=== PATIENT | female | born 1975 | race Caucasian/White ===

== ENCOUNTER 2023-05-15 15:25 | Outpatient (AMB) | payer OTHER, SELFPAY ==
--- NOTE | 2023-05-15 15:34 | A.OFFPC_ITS ---
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 Intake Note: Patient is a new patient here to establish care Move Coordinator Required: No Allergies No Known Allergies Allergy (Verified 05/15/23 15:47) Medication List - Last Reconciled 05/15/23 by SEJAL Hayes No Known Home Meds Tobacco use date assessed: 05/15/23 Dental Screening Dental Screen Date: 05/15/23 Did you have a dental visit in the last 12 months?: No Did you have a dental problem in the last 6 months where you did not have access to dental care?: No 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 Previous PCP Dr. Best at [facility], last visit over 1 year ago. Medical history significant for fibromyalgia-patient reports multiple joint pains-would like to be seen by Rheumatology, reports being diagnosed with IBS in the past-reports diarrhea since her childhood almost daily watery/soft-reports diarrhea after she eats anything-reports normal stool once several months ago, anemia, GERD-reports taking her 's omeprazole intermittently, insomnia, shortness of breath on exertion with intermittent palpitations at the same time- reports having stress test in the past-reports was told has pressure on her heart , smoker-reports smoking less than 0.5 ppd of cigarettes per day since age 15, alcohol abuse-reports drinking at night 1-3 drinks to help her fall asleep. Patient denies chest pain, denies blood in stool, no nausea or vomiting. [facility] Medical History (Updated 05/15/23 @ 16:03 by SEJAL Hayes) Foot fracture, right Surgical History H/O tubal ligation Social History Housing: Apartment Patient Tobacco Use Status: Current everyday Tobacco user Cigarette Packs Per Day: 0.5 service: No Current occupational status: unemployed Cognitive needs: No Hearing needs: No Vision needs: No Questionnaire PHQ-9 Over the last 2 weeks, how often have you been bothered by any of the following problems? 1. Little interest or pleasure in doing things: not at all 2. Feeling down, depressed, or hopeless: not at all 3. Trouble falling or staying asleep, or sleeping too much: not at all 4. Feeling tired or having little energy: not at all 5. Poor appetite or overeating: not at all 6. Feeling bad about yourself - or that you are a failure or have let yourself or your family down: not at all 7. Trouble concentrating on things, such as reading the newspaper or watching television: not at all 8. Moving or speaking so slowly that other people could have noticed. Or the opposite - being so fidgety or restless that you have been moving around a lot more than usual: not at all 9. Thoughts that you would be better off or of hurting yourself in some way: not at all Total score: 0 Depression Screening Interpretation: Negative Depression Screening Done: Yes 79938 - PHQ-9 Billing: Yes Source: Developed by Drs. Manpreet Nesbitt, Anisha Garcia, Brett Chino and colleagues, with an educational amaury from [employer]. Thrive Questionnaire Date Thrive assessed: 05/15/23 I am a: Patient What is your living situation today?: I have a steady place to live Within the past 12 months, did the food you bought not last and you didn't have the money to get more?: Never true Within the past 12 months, did you worry whether your food would run out before you got money to buy more?: Never true Do you have trouble paying for medicines?: No Do you have trouble getting transportation to medical appointments?: No Do you have trouble paying your heating and electricity bill?: No Do you have trouble taking care of your child, family member or friend?: No Do you have trouble with day-to-day activities such as bathing, preparing meals, shopping, managing finances, etc.?: No Are you currently unemployed and looking for a job?: No Are you interested in more education?: No Currently or been in a relationship where the following occur: no concerns reported AUDIT C Alcohol Use Questionnaire (AUDIT-C) 1. How often do you have a drink containing alcohol?: 4 or more times a week 2. How many drinks containing alcohol do you have on a typical day when you are drinking?: 3 or 4 3. How often do you have six or more drinks on one occasion?: Never Total Score: 5 Score Reviewed/Action Taken: Yes KEILA-7 AMB Questionnaire KEILA-7 Date KEILA - 7 assessed: 05/15/23 Feeling nervous, anxious, or on edge: 0 = Not at all Not being able to stop or control worryin = Not at all Worrying too much about different things: 0 = Not at all Trouble relaxin = Not at all Being so restless that it is hard to sit still: 0 = Not at all Becoming easily annoyed or irritable: 0 = Not at all Feeling afraid as if something awful might happen: 0 = Not at all Total KEILA-7 score (0-4 normal; 5-9 mild; 10-14 moderate; 15-21 severe): 0 Source: Developed by Drs. Manpreet Nesbitt, Anisha Garcia, Brett Chino and colleagues, with an educational amaury from [employer]. KEILA-7 Assessment Billing KEILA-7 Assessment Tool: KEILA-7 Assessment 80943 Review of Systems Const Denies body aches, Denies chills, Denies fever(s) and Denies headache(s) Eyes Denies change in vision ENT Denies dizziness, Denies otalgia, Denies headache(s), Denies nasal discharge, Denies sinus pain and Denies sore throat Card Denies chest pain, Denies edema, Denies lightheadedness, Reports palpitations (Intermittent), Denies dyspnea and Reports dyspnea on exertion Resp Denies cough, Denies dyspnea, Reports dyspnea on exertion and Denies wheezing GI Reports abdominal pain (Intermittent generalized, resolves after bowel), Denies change in bowel habits, Denies constipation, Reports heartburn, Reports diarrhea, Denies nausea and Denies vomiting Denies dysuria Musc Denies myalgias Skin/Breast Denies rash Neuro Denies dizziness and Denies headache(s) Endo Reports palpitations (Intermittent) Aller/Immun Denies wheezing Physical exam (Primary Care) Vital Signs: Last Vital Signs Pulse 69 05/15/23 15:35 BP 142/90 H 05/15/23 15:35 Pulse Ox 99 05/15/23 15:35 Oxygen Delivery Method Room Air 05/15/23 15:35 BMI result Body Mass Index 29.0 Tobacco/Smoking Status: Tobacco use Status Tobacco use date assessed 05/15/23 05/15/23 15:36 Patient Tobacco Use Status Current everyday Tobacco 05/15/23 15:44 PHQ-9: PHQ-9 Score PHQ-9: Total score 0 05/15/23 15:44 Depression Screening Interpretation: Negative Thrive Assessment: Date of Thrive Assessment Date Thrive assessed 05/15/23 05/15/23 15:36 Currently or been in a relationship where the following occur: no concerns reported Const General: cooperative and no acute distress Orientation/consciousness: patient oriented x3 HENMT Head: Yes normocephalic and Yes atraumatic Ears: TM's normal bilaterally Face and sinus: Yes sinuses nontender Mouth: oropharynx normal and moist mucous membranes Throat: Yes posterior oropharynx normal Eyes General: appearance normal, both eyes and all related structures Pupils: Equal, round and reactive pupils present EOM: EOMs intact bilaterally Neck Neck: Yes normal visual inspection, Yes full ROM and Yes no lymphadenopathy Thyroid: Thyroid normal Resp Effort & Inspection: normal respiratory effort and able to speak in complete sentences Auscultation: clear to auscultation bilaterally, no crackles, no rales, no rhonchi and no wheezes Cardio Rate: regular rate Rhythm: regular rhythm Heart sounds: S1 normal heart sound present, S2 normal heart sound present and no murmurs GI Palpation (GI): Soft to palpation, not firm, nontender, no guarding, not rigid and no hepatosplenomegaly Auscultation: normal bowel sounds General: No CVA tenderness Back/Spine/Pelvis Back: No CVA tenderness Skin General skin exam: no rashes or lesions noted Neuro General: patient oriented x3 Cranial nerves: Yes Equal, round and reactive pupils present Gait exam (Neuro): Normal gait present Extrem General: Yes full ROM and No edema Assessment and Plan Assessment & Plan (1) Smoker: Code(s): F17.200 - Nicotine dependence, unspecified, uncomplicated Plan: Encouraged smoking cessation Patient declined nicotine patch (2) Alcohol abuse: Code(s): F10.10 - Alcohol abuse, uncomplicated Plan: Encouraged alcohol cessation Patient declined referral to comprehensive care clinic (3) Intermittent palpitations: Code(s): R00.2 - Palpitations Plan: EKG ordered (4) SOBOE (shortness of breath on exertion): Code(s): R06.02 - Shortness of breath Plan: Will obtain PFTs, will provide with albuterol inhaler p.r.n., possible COPD patient smoking since age 15, encouraged smoking cessation (5) Insomnia: Code(s): G47.00 - Insomnia, unspecified Plan: Sleep hygiene Start hydroxyzine 25 mg at bedtime p.r.n.-educated about drowsiness (6) GERD (gastroesophageal reflux disease): Code(s): K21.9 - Gastro-esophageal reflux disease without esophagitis Plan: Start omeprazole 20 mg daily Avoid GERD trigger foods Do not lay down 2-3 hours after evening meal (7) Screening for colon cancer: Code(s): Z12.11 - Encounter for screening for malignant neoplasm of colon Plan: GI referral (8) Anemia: Code(s): D64.9 - Anemia, unspecified Plan: Blood work ordered (9) Diarrhea: Code(s): R19.7 - Diarrhea, unspecified Plan: Stool samples ordered Denies being recently on antibiotic Did try Imodium in the past with worsening symptoms per patient GI referral (10) IBS (irritable bowel syndrome): Code(s): K58.9 - Irritable bowel syndrome without diarrhea Plan: GI referral (11) Fibromyalgia: Comment: onset 2016 Code(s): M79.7 - Fibromyalgia Plan: Rheumatology referral for an evaluation and treatment (12) Encounter to establish care: Code(s): Z76.89 - Persons encountering health services in other specified circumstances Plan: Patient presents to establish care, blood work ordered Plan Follow-up in 2 months for PE Orders: Orders TSH reflex Free T4 Today D64.9 - Anemia, unspecified Comprehensive [place]. Panel Fast Today D64.9 - Anemia, unspecified PFT pulmonary function test Today R06.02 - Shortness of breath Vitamin D 25-OH Total Today D64.9 - Anemia, unspecified Vitamin B12 and Folate Today D64.9 - Anemia, unspecified Lipid Panel Today D64.9 - Anemia, unspecified Complete Blood Count Auto Diff Today D64.9 - Anemia, unspecified Ova and Parasite Today R19.7 - Diarrhea, unspecified Leukocytes Stool Qualitative Today R19.7 - Diarrhea, unspecified CDiff Gene PCR Today R19.7 - Diarrhea, unspecified H pylori Ag Stool Today R19.7 - Diarrhea, unspecified ECG 12 lead EKG Today R00.2 - Palpitations, R06.02 - Shortness of breath Referrals Gastroenterology Referral K58.9 - Irritable bowel syndrome without diarrhea, R19.7 - Diarrhea, unspecified, Z12.11 - Encounter for screening for malignant neoplasm of colon Rheumatology Referral M79.7 - Fibromyalgia Medications: New hydroxyzine HCl 25 mg PO BEDTIME PRN 14 tabs 0RF insomnia G47.00 - Insomnia, unspecified albuterol sulfate 90 mcg/actuation (Ventolin HFA) 2 puffs inhalation Q4-6H PRN 8.5 grams 0RF shortness of breath or wheezing R06.02 - Shortness of breath omeprazole 20 mg PO DAILY 30 caps 2RF K21.9 - Gastro-esophageal reflux disease without esophagitis Coding Level of Care Code New Pt Level 4 (30920) Diagnoses Smoker F17.200 Alcohol abuse F10.10 Intermittent palpitations R00.2 SOBOE (shortness of breath on exertion) R06.02 Insomnia G47.00 GERD (gastroesophageal reflux disease) K21.9 Screening for colon cancer Z12.11 Anemia D64.9 Diarrhea R19.7 IBS (irritable bowel syndrome) K58.9 Fibromyalgia M79.7 Encounter to establish care Z76.89 Additional Codes KEILA-7 Assessment Billing - KEILA-7 Assessment Tool: KEILA-7 Assessment 13365 ([id number])
[2023-05-15 15:35] VITALS: BP 142/90; PULSE 69; O2SAT 99; BMI 29.0
[2023-05-15 16:10] VITALS: BP 126/80
== END 2023-05-15 16:13 | disposition home or self-care (01) ==
PROVIDERS: PCP Nurse Practitioner Family; Visit Provider Nurse Practitioner Family
DX: M79.7 Fibromyalgia (principal); K58.0 Irritable bowel syndrome with diarrhea; K21.9 Gastro-esophageal reflux disease without esophagitis; D64.9 Anemia, unspecified; R00.2 Palpitations; R06.02 Shortness of breath; F17.210 Nicotine dependence, cigarettes, uncomplicated; F10.10 Alcohol abuse, uncomplicated; G47.00 Insomnia, unspecified
CPT/HCPCS: 99204

== ENCOUNTER 2023-05-21 09:36 | Outpatient (REF) | payer OTHER, SELFPAY ==
--- NOTE | 2023-05-21 09:47 | ECG_ITS ---
Test Reason : SOB Blood Pressure : / mmHG Vent. Rate : 084 BPM Atrial Rate : 084 BPM P-R Int : 148 ms QRS Dur : 072 ms QT Int : 380 ms P-R-T Axes : 059 034 034 degrees QTc Int : 449 ms Normal sinus rhythm Normal ECG No previous ECGs available Referred By: Alida Terry Electronically Signed By:Terrence Arambula
[2023-05-21 10:13] LABS: MANUAL DIFF FLAG NO
[2023-05-21 11:46] LABS: Basophils Absolute Auto 0.1 X10*3/uL (0.0-0.2); Basophils Percent Auto 1.8 % (0-2); Eosinophils Absolute Auto 0.3 X10*3/uL (0.0-0.4); Eosinophils Percent Auto 3.4 % (0-4); Hematocrit 46.2 % (37.0-47.0); Hemoglobin 15.2 g/dl (12.0-16.0); Imm Gran Abs Auto 0.02 X10*3/uL (0.00-0.03); Imm Gran Pct Auto 0.3 % (0.0-0.4); Lymphocytes Absolute Auto 2.4 X10*3/uL (1.2-4.9); Lymphocytes Percent Auto 31.1 % (20-40); Mean Corpuscular HGB Conc 32.9 g/dl (31.0-35.0); Mean Corpuscular Hemoglobin 33.1 pg (27.0-33.0); Mean Corpuscular Volume 100.7 fL (80.0-98.0); Mean Platelet Volume 10.6 fL (9.4-12.3); Monocytes Absolute Auto 0.5 X10*3/uL (0.1-1.2); Neutrophils Absolute Auto 4.4 x10*3/uL (2.0-8.3); Neutrophils Percent Auto 57.4 % (45-73); Platelet Count 280 X10*3/uL (160-400); Red Blood Count 4.59 X10*6/uL (4.20-5.50); Red Cell Distribution Width 12.8 % (11.0-16.0); White Blood Count 7.7 X10*3/uL (4.8-10.8)
[2023-05-21 12:20] LABS: Alanine Aminotransferase 91 U/L (0-31); Albumin Level 3.7 g/dL (3.5-5.0); Alkaline Phosphatase 100 U/L (39-117); Anion Gap 10 (12-20); Aspartate Amino Transferase 61 U/L (5-31); Bilirubin Total 0.5 mg/dL (0.0-1.0); Blood Urea Nitrogen 7 mg/dL (9-16); Calcium 8.7 mg/dL (8.4-10.2); Carbon Dioxide 25 mmol/L (22-29); Chloride 110 mmol/L (96-108); Cholesterol 187 mg/dL (<200); Estimated Glomerular Filt Rate > 60; Glucose Fasting 110 mg/dL (60-99); HDL Cholesterol 33 mg/dL (>40); LDL Cholesterol Calculated 125 mg/dL (<100); Potassium 4.1 mmol/L (3.3-5.1); Sodium 141 mmol/L (135-145); Total Protein 6.1 g/dL (6.5-8.0); Triglycerides 148 mg/dL (<150)
[2023-05-21 12:38] LABS: TSH reflex Free T4 2.03 uIU/mL (0.32-4.0); Vitamin D 25-OH Total 12.6 ng/mL (>30)
[2023-05-21 12:43] LABS: Folate 5.7 ng/mL (> or = 4.0); Vitamin B12 277 pg/mL (200-900)
== END 2023-05-21 09:37 | disposition home or self-care (01) ==
LOC: HO.LAB 09:36
PROVIDERS: PCP Nurse Practitioner Family; Visit Provider Nurse Practitioner Family
DX: D64.9 Anemia, unspecified (principal); R06.02 Shortness of breath; R00.2 Palpitations
CPT/HCPCS: 36415; 80053; 80061; 82306; 82607; 82746; 84443; 85025; 93005

== ENCOUNTER → 2023-05-21 09:47 | Outpatient (BNV) | payer OTHER, SELFPAY | PROVIDERS: PCP Nurse Practitioner Family; Visit Provider Internal Medicine Cardiovascular Disease | DX: R06.02 Shortness of breath (principal) | CPT/HCPCS: 93010 ==

== ENCOUNTER 2023-06-11 13:06 | Outpatient (REF) | payer OTHER, SELFPAY ==
[2023-06-11 15:17] LABS: Leukocytes Stool Qualitative NEGATIVE (NEGATIVE)
[2023-06-11 15:27] LABS: CDiff Gene PCR POSITIVE (Negative)
[2023-06-11 15:28] LABS: Estimated Average Glucose 97 mg/dL
[2023-06-11 16:00] LABS: CDIFF Internal ctrl Dots and bkg OK (V); CDiff Toxin Negative (Negative)
[2023-06-12 04:54] LABS: HBc Num1 0.08 S/CO (0.00-0.79); HBsAGNum1 0.29 S/CO (0.00-0.99); Hepatitis A Antibody IgM 0.14 Index (0-0.79); Hepatitis B Core Antibody Nonreactive (Nonreactive); Hepatitis B Surface Antigen Negative (Negative); ~HepC Num1 0.45 S/CO (0.00-0.79); ~Hepatitis A Antibody IgM Nonreactive (Nonreactive); ~Hepatitis B Surface Antibody NONREACTIVE (Nonreactive); ~Hepatitis C Antibody Nonreactive (Nonreactive)
== END 2023-06-11 13:07 | disposition home or self-care (01) ==
LOC: HO.LAB 13:06
PROVIDERS: PCP Nurse Practitioner Family; Visit Provider Nurse Practitioner Family
DX: R19.7 Diarrhea, unspecified (principal); R73.01 Impaired fasting glucose; R79.89 Other specified abnormal findings of blood chemistry; Z11.59 Encounter for screening for other viral diseases; Z72.89 Other problems related to lifestyle
CPT/HCPCS: 36415; 83036; 86704; 86706; 86709; 86803; 87177; 87209; 87324; 87338; 87340; 87493; 89055

== ENCOUNTER 2023-07-11 13:04 | Outpatient (REF) | payer OTHER, SELFPAY ==
--- NOTE | ~2023-07-11 | XR_ITS ---
EXAMINATION: XR SHOULDER, RIGHT CLINICAL INFORMATION: Right shoulder pain COMPARISON: None available. TECHNIQUE: AP external rotation, Grashey, scapular Y, and axillary views of the right shoulder. FINDINGS: The bones and soft tissues are normal. No fracture. Glenohumeral and acromioclavicular alignment is anatomic with normal joint space. No abnormal soft tissue calcifications. XR/XR shoulder RT min 2V IMPRESSION: Normal right shoulder.
--- NOTE | ~2023-07-11 | XR_ITS ---
EXAMINATION: XR cervical spine 3V CLINICAL INFORMATION: Pain COMPARISON: None TECHNIQUE: 4 views of the cervical spine were obtained. FINDINGS: The cervical spine is visualized to the level of C7 on the lateral view. Vertebral body alignment is maintained. Vertebral body heights are maintained. Lateral masses of C1 are well aligned on C2. Visualized portion of the dens is intact. Mild degenerative disc disease at C5/C6, manifested by disc space narrowing and osteophytosis. No prevertebral soft tissue swelling. XR/XR cervical spine 3V IMPRESSION: Mild spondylosis of the cervical spine, as above detailed.
== END 2023-07-11 13:05 | disposition home or self-care (01) ==
LOC: HO.XRAY 13:04
PROVIDERS: Visit Provider Internal Medicine
DX: M54.2 Cervicalgia (principal); M25.511 Pain in right shoulder
CPT/HCPCS: 72040; 73030

== ENCOUNTER 2023-07-16 10:26 | Outpatient (REF) | payer OTHER, SELFPAY ==
--- NOTE | ~2023-07-16 | US_ITS ---
EXAMINATION: US ABDOMEN COMPLETE CLINICAL INFORMATION: Other specified abnormal findings of blood chemistry. COMPARISON: None available. TECHNIQUE: Real-time imaging of the abdominal viscera. FINDINGS: PANCREAS: Normal. ABDOMINAL AORTA: The proximal, mid, and distal segments are normal in caliber. INFERIOR VENA CAVA: Visualized portions are normal. LIVER: There is hepatomegaly, with a longitudinal span of 20.2 cm. The liver contour is normal. There is diffuse increased liver parenchymal echogenicity. No focal hepatic lesion. There is no intrahepatic biliary duct dilatation seen. GALLBLADDER: Normal. The gallbladder is physiologically distended without evidence of stones, sludge, polyps, wall thickening or pericholecystic fluid. COMMON BILE DUCT: Normal in caliber measuring 0.2 cm in diameter. RIGHT KIDNEY: Normal. No hydronephrosis. No renal calculi or focal parenchymal lesions. The kidney measures 10.45 cm in maximum dimension. LEFT KIDNEY: At the interpolar aspect, a 1.1 cm benign, simple cyst is seen. At the lower pole, a 6.1 benign, simple cyst is seen. These require no imaging follow-up. No hydronephrosis or renal calculi. The kidney measures 13.7 cm in maximum dimension. SPLEEN: Normal. The spleen measures 10.2 cm in maximum dimension. FREE FLUID: None. US/US abdomen complete IMPRESSION: 1. There is hepatomegaly. 2. There is generalized increase in hepatic echotexture, consistent with fatty infiltration or hepatocellular disease. Please correlate clinically. No focal hepatic mass or intrahepatic biliary dilatation is seen.
== END 2023-07-16 10:27 | disposition home or self-care (01) ==
LOC: HO.US 10:26
PROVIDERS: PCP Nurse Practitioner Family; Visit Provider Nurse Practitioner Family
DX: R79.89 Other specified abnormal findings of blood chemistry (principal)
CPT/HCPCS: 76700

== ENCOUNTER 2023-07-19 08:23 | Outpatient (AMB) | payer OTHER, SELFPAY ==
--- NOTE | 2023-07-19 08:32 | MHC.OFFVIS ---
Intake Vital Signs 07/19/23 08:35 Height 5 ft 4 in Weight 171 lb 1.259 oz BMI 29.4 BP 140/76 H Blood Pressure Location Lt brachial Position Sitting Pulse 84 Intake Visit Reasons: Diarrhea Intake Note: Pt c/o; reports diarrhea x3 a day, report c-diff, reports no abdominal pain or cramping. 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 Patient was found to have C diff back in June. C diff gene positive negative toxin. Patient was treated with metronidazole. Patient continues to have loose stools. Patient reports that she has loose stools daily. However she reports that she does not feel like she empties her bowels completely. Patient denies traveling anywhere in the last couple months. Denies any fever or chills. Denies any abdominal pain or discomfort, however occasional left lower quadrant pain. Patient reports that she drinks alcohol every day. Patient was also found to have transaminitis and increased have hepatic echogenicity on ultrasound. Patient denies any nausea or vomiting. [facility] Medical History Foot fracture, right Surgical History H/O tubal ligation Social History Housing: Apartment Patient Tobacco Use Status: Current everyday Tobacco user Cigarette Packs Per Day: 0.5 service: No Current occupational status: unemployed Cognitive needs: No Hearing needs: No Vision needs: No Review of Systems Const Denies weight gain and Denies weight loss ENT Reports no additional complaints, Denies dysphagia and Denies odynophagia Card Reports no additional complaints Resp Reports no additional complaints GI Denies abdominal pain, Denies belching, Denies melena, Denies bloating, Denies change in bowel habits, Denies dysphagia, Denies excessive flatus, Denies dyspepsia, Denies heartburn, Denies diarrhea, Denies loose stools, Denies nausea, Denies odynophagia and Denies vomiting Musc Reports no additional complaints Neuro Reports no additional complaints Psych Reports no additional complaints Endo Reports no additional complaints Physical Exam Vital Signs: Last Vital Signs Pulse 84 07/19/23 08:35 BP 140/76 H 07/19/23 08:35 BMI result Body Mass Index 29.4 Assessment & Plan Assessment & Plan (1) C. difficile diarrhea: Comment: 06/2023 Code(s): A04.72 - Enterocolitis due to Clostridium difficile, not specified as recurrent (2) Elevated LFTs: Code(s): R79.89 - Other specified abnormal findings of blood chemistry (3) Alcohol abuse: Code(s): F10.10 - Alcohol abuse, uncomplicated (4) GERD (gastroesophageal reflux disease): Code(s): K21.9 - Gastro-esophageal reflux disease without esophagitis Qualifiers: Esophagitis presence: esophagitis presence not specified Qualified Code(s): K21.9 - Gastro-esophageal reflux disease without esophagitis (5) Diarrhea: Code(s): R19.7 - Diarrhea, unspecified Qualifiers: Diarrhea type: presumed infectious Qualified Code(s): R19.7 - Diarrhea, unspecified Plan Treated with metronidazole for C diff. frequent loose stools, however patient does not empty her bowels completely. Patient will try to take Citrucel. Will recheck C diff. Last stool study showed positive C diff gene and negative for C diff toxin.. Patient will start taking Citrucel daily to help her bulk stools and take senna at night time. Patient will follow FODMAP diet. List of food recommended as well as list of food to avoid given to patient. Elevated liver enzymes most likely from drinking alcohol, however will rule out for cancer, out immune disorders. Will rule out inflammatory bowel disease like Crohn's and colitis. Patient will be due for colonoscopy. Will check also GI panel. Patient will return in 6 weeks, sooner on as needed basis. Patient is agreeable to this plan and verbalizes understanding of instructions. She was given the opportunity to ask questions and all questions answered. Thank you for allowing me to participate in her care Orders: Orders GI Panel Today R19.7 - Diarrhea, unspecified Vitamin D 25-OH (D2 and D3) Today E55.9 - Vitamin D deficiency, unspecified Ferritin Today R74.8 - Abnormal levels of other serum enzymes Transglutaminase Ab IgG Today R10.9 - Unspecified abdominal pain CDiff Gene PCR Today R19.7 - Diarrhea, unspecified Smooth Muscle Antibody Today R79.89 - Other specified abnormal findings of blood chemistry C Reactive Protein Today K58.9 - Irritable bowel syndrome without diarrhea Vitamin B12 and Folate Today R19.7 - Diarrhea, unspecified Mitochondrial Antibody Today R79.89 - Other specified abnormal findings of blood chemistry Liver Fibrosis Pnl Today R74.8 - Abnormal levels of other serum enzymes Transglutaminase IgA Today R10.9 - Unspecified abdominal pain Ceruloplasmin Today R79.89 - Other specified abnormal findings of blood chemistry Calprotectin, Fecal Today R15.9 - Full incontinence of feces Alpha Fetoprotein Today R79.89 - Other specified abnormal findings of blood chemistry Medications: New methylcellulose (laxative) (Citrucel) 500 mg PO DAILY 30 tabs 2RF K59.00 - Constipation, unspecified sennosides (Natural Senna Laxative) 17.2 mg (2 x 8.6 mg) PO BEDTIME 60 tabs 3RF constipation K59.00 - Constipation, unspecified Coding Level of Care Code New Pt Level 4 (95394) Diagnoses C. difficile diarrhea A04.72 Elevated LFTs R79.89 Alcohol abuse F10.10 Gastroesophageal reflux disease, unspecified whether esophagitis present K21.9 Esophagitis presence: esophagitis presence not specified Diarrhea of presumed infectious origin R19.7 Diarrhea type: presumed infectious Time Spent (min) 45 Comment 30 minutes spent with patient and additional 15 minutes spent reviewing her records
[2023-07-19 08:35] VITALS: BP 140/76; PULSE 84; BMI 29.4
== END 2023-07-19 09:14 | disposition home or self-care (01) ==
PROVIDERS: PCP Nurse Practitioner Family; Visit Provider Nurse Practitioner Family
DX: A04.72 Enterocolitis due to Clostridium difficile, not specified as recurrent (principal); R79.89 Other specified abnormal findings of blood chemistry; F10.10 Alcohol abuse, uncomplicated; K21.9 Gastro-esophageal reflux disease without esophagitis; R19.7 Diarrhea, unspecified
CPT/HCPCS: 99204

== ENCOUNTER → 2023-07-19 08:23 | Outpatient (BNVA) | payer OTHER, SELFPAY | PROVIDERS: PCP Nurse Practitioner Family; Visit Provider Nurse Practitioner Family | DX: K21.9 Gastro-esophageal reflux disease without esophagitis (principal); R19.7 Diarrhea, unspecified; R79.89 Other specified abnormal findings of blood chemistry; F10.10 Alcohol abuse, uncomplicated; A04.72 Enterocolitis due to Clostridium difficile, not specified as recurrent | CPT/HCPCS: 99202 ==

== ENCOUNTER 2023-07-30 16:48 | Outpatient (AMB) | payer OTHER, SELFPAY ==
[2023-07-30 16:49] VITALS: BP 116/84; PULSE 76; O2SAT 98; BMI 29.3
--- NOTE | 2023-07-30 16:49 | MHC.PC.OV ---
Vital Signs 07/30/23 16:49 Height 5 ft 4 in Weight 170 lb 8 oz BMI 29.3 BP 116/84 Blood Pressure Location Lt brachial Position Sitting Pulse 76 Pulse Source Pulse Oximeter Pulse Oximetry (%) 98 Oxygen Delivery Method Room Air Intake Visit Reasons: pe Consumer Safety Inspector Required: No Accompanied by: Self / Same As Patient Allergies No Known Allergies Allergy (Verified 07/30/23 17:31) Medication List - Last Reconciled 07/30/23 by Gurpreet Sow MD albuterol sulfate 90 mcg/actuation (Ventolin HFA) 2 puffs inhalation Q4-6H PRN cholecalciferol (vitamin D3) 50 mcg PO DAILY hydroxyzine HCl 25 mg PO BEDTIME PRN methylcellulose (laxative) (Citrucel) 500 mg PO DAILY omeprazole 20 mg PO DAILY sennosides (Natural Senna Laxative) 17.2 mg (2 x 8.6 mg) PO BEDTIME Tobacco use date assessed: 07/30/23 Dental Screening Dental Screen Date: 07/30/23 Did you have a dental visit in the last 12 months?: No Did you have a dental problem in the last 6 months where you did not have access to dental care?: No Was dental information given to patient?: No HPI pe HPI Details Patient comes in today for her annual physical examination - used to see Alida Terry, who is no longer with the practice States that she was seen by GI about a week and a half ago for consultation regarding her loose stools/diarrhea States that she's had problems with loose stools and frequent bowel movements for years and tested positive for C. diff last month, for which she was treated with oral Metronidazole althought she did not feel that her diarrhea improved much with the Abx Tx States that she was sent for labs for further evaluation and she has not yet gotten these done Relates that she is also being scheduled for a colonoscopy for further evaluation and she hopes to get this scheduled soon She denies any headaches or dizziness Denies any chest pains but states that she has been experiencing on and off YATES for the past few years, for which she was prescribed an Albuterol inhaler to use as needed States that she did not have any asthma or significant respiratory issues while growing up Relates that she had PFTs done at [place] about 2 years ago and was told that her test came out normal No nausea/vomiting, no abdominal pain She denies any acute urinary symptoms States that she had her mammogram last done at [place] about 6 to 7 months ago - recalls being told that it was normal States that she has not had a gynecology exam and pap smear done in a few years now - these were last done at [place] a few years back [facility] Medical History (Updated 07/31/23 @ 05:12 by Gurpreet Sow MD) Overweight (BMI 25.0-29.9) Alcohol abuse Smoker Vitamin D deficiency Mixed hyperlipidemia Elevated LFTs Sarcoidosis Crohn's disease Depression Anxiety Osteoarthritis Osteopenia Hypothyroidism Fibromyalgia Foot fracture, right Surgical History (Updated 07/31/23 @ 04:41 by Gurpreet Sow MD) History of esophagogastroduodenoscopy (EGD) Hx of cervical discectomy Hx of lumbar discectomy Hx of tonsillectomy Hx of colonoscopy H/O tubal ligation Family History (Updated 07/31/23 @ 04:44 by Gurpreet Sow MD) Mother Pancreatic cancer Other No family history of mental disorder Social History Housing: Apartment Patient Tobacco Use Status: Current everyday Tobacco user Cigarette Packs Per Day: 0.5 service: No Current occupational status: unemployed Cognitive needs: No Hearing needs: No Vision needs: No Questionnaire PHQ-9 Over the last 2 weeks, how often have you been bothered by any of the following problems? 1. Little interest or pleasure in doing things: not at all 2. Feeling down, depressed, or hopeless: not at all 3. Trouble falling or staying asleep, or sleeping too much: not at all 4. Feeling tired or having little energy: not at all 5. Poor appetite or overeating: not at all 6. Feeling bad about yourself - or that you are a failure or have let yourself or your family down: not at all 7. Trouble concentrating on things, such as reading the newspaper or watching television: not at all 8. Moving or speaking so slowly that other people could have noticed. Or the opposite - being so fidgety or restless that you have been moving around a lot more than usual: not at all 9. Thoughts that you would be better off or of hurting yourself in some way: not at all Total score: 0 Depression Screening Interpretation: Negative Depression Screening Done: Yes 60085 - PHQ-9 Billing: Yes Source: Developed by Drs. Manpreet Nesbitt, Anisha Garcia, Brett Chino and colleagues, with an educational amaury from [employer]. Thrive Questionnaire Date Thrive assessed: 07/30/23 I am a: Patient What is your living situation today?: I have a steady place to live Within the past 12 months, did the food you bought not last and you didn't have the money to get more?: Never true Within the past 12 months, did you worry whether your food would run out before you got money to buy more?: Never true Do you have trouble paying for medicines?: No Do you have trouble getting transportation to medical appointments?: No Do you have trouble paying your heating and electricity bill?: No Do you have trouble taking care of your child, family member or friend?: No Do you have trouble with day-to-day activities such as bathing, preparing meals, shopping, managing finances, etc.?: No Are you currently unemployed and looking for a job?: No Are you interested in more education?: No Currently or been in a relationship where the following occur: no concerns reported THRIVE Score: 0 AUDIT C Alcohol Use Questionnaire (AUDIT-C) 1. How often do you have a drink containing alcohol?: 4 or more times a week 2. How many drinks containing alcohol do you have on a typical day when you are drinking?: 3 or 4 3. How often do you have six or more drinks on one occasion?: Never Total Score: 5 Score Reviewed/Action Taken: Yes KEILA-7 AMB Questionnaire KEILA-7 Date KEILA - 7 assessed: 07/30/23 Feeling nervous, anxious, or on edge: 0 = Not at all Not being able to stop or control worryin = Not at all Worrying too much about different things: 0 = Not at all Trouble relaxin = Not at all Being so restless that it is hard to sit still: 0 = Not at all Becoming easily annoyed or irritable: 0 = Not at all Feeling afraid as if something awful might happen: 0 = Not at all Total KEILA-7 score (0-4 normal; 5-9 mild; 10-14 moderate; 15-21 severe): 0 Source: Developed by Drs. Manpreet Nesbitt, Anisha Garcia, Brett Chino and colleagues, with an educational amaury from [employer]. KEILA-7 Assessment Billing KEILA-7 Assessment Tool: KEILA-7 Assessment 50391 Review of Systems Const Denies chills, Reports fatigue, Denies fever(s), Denies headache(s) and Denies malaise Eyes Denies blurry vision, Denies change in vision, Denies irritation and Denies itchy eyes ENT Denies dysphagia, Denies dizziness, Denies otalgia, Denies headache(s), Denies nasal congestion, Reports neck pain, Denies odynophagia, Denies sinus pain and Denies sore throat Card Denies chest pain, Denies rapid heart rate, Denies irregular heart rhythm, Denies palpitations and Reports dyspnea on exertion (mild, on and off) Resp Denies chest congestion, Denies cough, Reports dyspnea on exertion (mild, on and off) and Denies wheezing GI Denies abdominal pain, Denies bloating, Denies hematochezia, Denies constipation, Denies dysphagia, Denies heartburn, Reports diarrhea, Reports loose stools, Denies nausea, Denies odynophagia and Denies vomiting Denies hematuria, Denies urinary frequency, Denies dysuria, Denies urinary incontinence and Denies urinary urgency Musc Reports back pain (over the lower back - chronic), Denies arthralgias, Denies joint swelling, Denies muscle weakness and Reports neck pain Skin/Breast Denies breast pain, Denies breast mass, Denies change in pigmentation, Denies lesions, Denies rash and Denies unusual bruising Neuro Denies dizziness, Denies headache(s) and Denies paresthesias Psych Denies anxiety and Denies depression Endo Reports fatigue and Denies palpitations Julián/Lymph Denies easy bruising Aller/Immun Denies itchy eyes and Denies wheezing Physical exam (Primary Care) Vital Signs: Last Vital Signs Pulse 76 07/30/23 16:49 BP 116/84 07/30/23 16:49 Pulse Ox 98 07/30/23 16:49 Oxygen Delivery Method Room Air 07/30/23 16:49 BMI result Body Mass Index 29.3 Tobacco/Smoking Status: Tobacco use Status Tobacco use date assessed 07/30/23 07/30/23 16:52 Patient Tobacco Use Status Current everyday Tobacco 07/30/23 16:52 PHQ-9: PHQ-9 Score PHQ-9: Total score 0 07/30/23 19:12 Depression Screening Interpretation: Negative Thrive Assessment: Date of Thrive Assessment Date Thrive assessed 07/30/23 07/30/23 16:52 Currently or been in a relationship where the following occur: no concerns reported Const General: no acute distress, alert and awake Orientation/consciousness: patient oriented x3 HENMT Head: Yes normocephalic and Yes atraumatic Ears: external ears normal, TM's normal bilaterally and EAC's normal General nose exam: No nasal discharge present Face and sinus: Yes normal facial exam and Yes sinuses nontender Teeth and gingiva: dentition normal Throat: Yes posterior oropharynx normal and Yes tonsils normal (no TP congestion) Eyes Eyelids: Yes eyelids normal Conjunctivae: conjunctivae normal Pupils: Equal, round and reactive pupils present EOM: EOMs intact bilaterally Neck Neck: Yes no lymphadenopathy and Yes supple Thyroid: Thyroid normal Resp Auscultation: clear to auscultation bilaterally, no rales and no wheezes Cardio Rate: regular rate Rhythm: regular rhythm Heart sounds: no murmurs GI Palpation (GI): Soft to palpation, nontender and No hepatosplenomegaly present Auscultation: normal bowel sounds General: Yes no CVA tenderness Back/Spine/Pelvis Back: no CVA tenderness Cervical Spine: Cervical spine tenderness Thoracic/Lumbar Spine: lumbar spinal tenderness Skin Lesions: no lesions Rashes: no rashes Neuro General: patient oriented x3, moves all extremities, no focal motor deficits and CN's II-XI intact bilaterally Cranial nerves: Yes Equal, round and reactive pupils present Cognition (Neuro): normal cognition Gait exam (Neuro): Normal gait present Extrem General: Yes no clubbing, cyanosis or edema Assessment and Plan Assessment & Plan (1) Annual physical exam: Code(s): Z00.00 - Encounter for general adult medical examination without abnormal findings Plan: Check labs Patient reportedly had her mammogram last done at [place] about 6 to 7 months ago and will try to get a copy of her results sent over to us for review and documentation She was seen by GI recently and will be having a colonoscopy scheduled soon She has not had her annual gynecology exam and pap smear done in a few years and will be referred to gynecology here at [facility], per her request (2) Mixed hyperlipidemia: Comment: has high triglyceride levels in the past Code(s): E78.2 - Mixed hyperlipidemia Plan: Reinforced low cholesterol diet Patient has Hx of high TG level in the past although her most recent fasting lipid profile last year showed normal TG level Will recheck her labs and fasting lipids for follow up (3) Elevated LFTs: Code(s): R79.89 - Other specified abnormal findings of blood chemistry Plan: Most likely due to hepatosteeatosis Will recheck her LFTs for follow up Hepatitis profile done last month (June 2023) came back negative (4) Vitamin D deficiency: Code(s): E55.9 - Vitamin D deficiency, unspecified Plan: Continue Vitamin D3 2000 units QD Will recheck her Vitamin D level for follow up (5) C. difficile diarrhea: Comment: 06/2023 Code(s): A04.72 - Enterocolitis due to Clostridium difficile, not specified as recurrent Plan: Patient tested positive for C. diff early last month (June 2023) and was treated with oral Metronidazole but she reports continuing issues with loose stools/diarrhea although she has not seen (+) blood in her stool She was seen by GI recently and has been sent for some additional work ups Follow up with GI as scheduled (6) Exertional dyspnea: Code(s): R06.09 - Other forms of dyspnea Plan: She was sent for PFTs for further evaluation by her previous PCP last year but states that this was never scheduled or done Will reorder her PFTs for further evaluation (+) Hx of sarcoidosis so will send her for some labs as well as chest x-rays for follow up/further evaluation (7) Sarcoidosis: Code(s): D86.9 - Sarcoidosis, unspecified Plan: Will send patient for chest x-rays for follow up / further evaluation and staging (8) History of hypothyroidism: Code(s): Z86.39 - Personal history of other endocrine, nutritional and metabolic disease Plan: Patient used to see Dr. Carole Bella in [place] for follow up of this issue She currently appears to not be on any Rx for her thyroid Will recheck her TFTs JOS for follow up (9) Impaired fasting glucose: Code(s): R73.01 - Impaired fasting glucose Plan: Patient has had issues with elevated FBS in the past Will recheck her FBS and also check her HgbA1c for further evaluation Reinforced low calorie/low carb diet; exercise as tolerated (10) Lumbar degenerative disc disease: Comment: (+) Hx of L4-L5 discectomy by Dr. Suarez in 09/2015 Code(s): M51.36 - Other intervertebral disc degeneration, lumbar region Plan: Reinforced activity and weight-lifting restrictions (11) History of alcohol abuse: Code(s): F10.11 - Alcohol abuse, in remission Plan: Counseled to continue/maintain abstinence and sobriety (12) Smoker: Code(s): F17.200 - Nicotine dependence, unspecified, uncomplicated Plan: Counseled on smoking cessation (13) Overweight (BMI 25.0-29.9): Code(s): E66.3 - Overweight Plan: Reinforced diet/exercise as tolerated/lose weight (14) Cervical cancer screening: Code(s): Z12.4 - Encounter for screening for malignant neoplasm of cervix Plan: Per request, will refer back to Dr. Rascon for her annual gynecology exam and pap smear Plan Follow up with PCP as scheduled in September 2023 Orders: Orders Complete Blood Count Auto Diff 07/30/23 D64.9 - Anemia, unspecified, Z00.00 - Encounter for general adult medical examination without abnormal findings Comprehensive [place]. Panel Fast 07/30/23 E78.00 - Pure hypercholesterolemia, unspecified, Z00.00 - Encounter for general adult medical examination without abnormal findings Vitamin D 25-OH Total 07/30/23 E55.9 - Vitamin D deficiency, unspecified, Z00.00 - Encounter for general adult medical examination without abnormal findings Hemoglobin A1c Today R73.01 - Impaired fasting glucose Lipid Panel 07/30/23 E78.00 - Pure hypercholesterolemia, unspecified, Z00.00 - Encounter for general adult medical examination without abnormal findings TSH reflex Free T4 07/30/23 E78.00 - Pure hypercholesterolemia, unspecified, Z00.00 - Encounter for general adult medical examination without abnormal findings UA CC w/rflx Micro + Cult 07/30/23 R30.0 - Dysuria, Z00.00 - Encounter for general adult medical examination without abnormal findings PFT pulmonary function test 07/30/23 R06.02 - Shortness of breath XR chest 2V Today R06.09 - Other forms of dyspnea Angiotensin Converting Enzyme Today D86.9 - Sarcoidosis, unspecified Magnesium Today E83.42 - Hypomagnesemia Referrals FACIAL OPERATOR Referral Z12.4 - Encounter for screening for malignant neoplasm of cervix Coding Level of Care Code Est Pt Prev Care 40-64y(64149) Diagnoses Annual physical exam Z00.00 Mixed hyperlipidemia E78.2 Elevated LFTs R79.89 Vitamin D deficiency E55.9 C. difficile diarrhea A04.72 Exertional dyspnea R06.09 Sarcoidosis D86.9 History of hypothyroidism Z86.39 Impaired fasting glucose R73.01 Lumbar degenerative disc disease M51.36 History of alcohol abuse F10.11 Smoker F17.200 Overweight (BMI 25.0-29.9) E66.3 Cervical cancer screening Z12.4 Additional Codes KEILA-7 Assessment Billing - KEILA-7 Assessment Tool: KEILA-7 Assessment 10006 ([id number])
== END 2023-07-30 17:44 | disposition home or self-care (01) ==
LOC: HO.HMGH 16:48
PROVIDERS: PCP Nurse Practitioner Family; Visit Provider Internal Medicine
DX: Z00.00 Encounter for general adult medical examination without abnormal findings (principal); E78.2 Mixed hyperlipidemia; R79.89 Other specified abnormal findings of blood chemistry; E55.9 Vitamin D deficiency, unspecified; A04.72 Enterocolitis due to Clostridium difficile, not specified as recurrent; R06.09 Other forms of dyspnea; D86.9 Sarcoidosis, unspecified; Z86.39 Personal history of other endocrine, nutritional and metabolic disease; R73.01 Impaired fasting glucose; M51.36 Other intervertebral disc degeneration, lumbar region; F10.11 Alcohol abuse, in remission; F17.200 Nicotine dependence, unspecified, uncomplicated
CPT/HCPCS: 99396

== ENCOUNTER 2023-08-05 08:28 | Outpatient (REF) | payer OTHER, SELFPAY ==
[2023-08-05 08:46] LABS: MANUAL DIFF FLAG NO
[2023-08-05 09:14] LABS: Basophils Absolute Auto 0.1 X10*3/uL (0.0-0.2); Basophils Percent Auto 1.7 % (0-2); Eosinophils Absolute Auto 0.2 X10*3/uL (0.0-0.4); Eosinophils Percent Auto 2.9 % (0-4); Hematocrit 43.9 % (37.0-47.0); Hemoglobin 14.9 g/dl (12.0-16.0); Imm Gran Abs Auto 0.01 X10*3/uL (0.00-0.03); Imm Gran Pct Auto 0.2 % (0.0-0.4); Lymphocytes Absolute Auto 1.9 X10*3/uL (1.2-4.9); Lymphocytes Percent Auto 32.6 % (20-40); Mean Corpuscular HGB Conc 33.9 g/dl (31.0-35.0); Mean Corpuscular Hemoglobin 31.9 pg (27.0-33.0); Monocytes Absolute Auto 0.4 X10*3/uL (0.1-1.2); Neutrophils Absolute Auto 3.3 x10*3/uL (2.0-8.3); Neutrophils Percent Auto 55.6 % (45-73); Platelet Count 240 X10*3/uL (160-400); Red Blood Count 4.67 X10*6/uL (4.20-5.50); Red Cell Distribution Width 12.5 % (11.0-16.0); White Blood Count 5.9 X10*3/uL (4.8-10.8)
[2023-08-05 09:24] LABS: Estimated Average Glucose 103 mg/dL; Hemoglobin A1c % 5.2 % (<6.0)
[2023-08-05 09:48] LABS: Alanine Aminotransferase 94 U/L (0-31); Albumin Level 3.6 g/dL (3.5-5.0); Alkaline Phosphatase 103 U/L (39-117); Anion Gap 11 (12-20); Aspartate Amino Transferase 72 U/L (5-31); Bilirubin Total 0.5 mg/dL (0.0-1.0); Blood Urea Nitrogen 7 mg/dL (9-16); Calcium 8.7 mg/dL (8.4-10.2); Carbon Dioxide 25 mmol/L (22-29); Chloride 109 mmol/L (96-108); Cholesterol 165 mg/dL (<200); Estimated Glomerular Filt Rate > 60; Glucose Fasting 119 mg/dL (60-99); HDL Cholesterol 27 mg/dL (>40); LDL Cholesterol Calculated 96 mg/dL (<100); Potassium 3.5 mmol/L (3.3-5.1); Sodium 141 mmol/L (135-145); Total Protein 6.3 g/dL (6.5-8.0); Triglycerides 212 mg/dL (<150)
[2023-08-05 09:59] LABS: C Reactive Protein 0.78 mg/dL (< or = 0.50)
[2023-08-05 10:00] LABS: Appearance Urine Cloudy; Color Urine Dark Yellow; Glucose Urine UA Negative (Negative); Leukocyte Esterase Urine Negative (Negative); Nitrite Urine Negative (Negative); PH 5.5 (5.0-9.0); Specific Gravity - Urine 1.025 (1.005-1.025); Urine Blood Negative (Negative); Urine Ketones 15 mg/dL (Negative); Urine Protein Trace mg/dL (Neg-Trace)
[2023-08-05 10:04] LABS: TSH reflex Free T4 2.56 uIU/mL (0.32-4.0); Vitamin D 25-OH Total 20.3 ng/mL (>30)
[2023-08-05 10:06] LABS: Ferritin 200 ng/mL (10-250)
[2023-08-05 10:14] LABS: Folate 6.4 ng/mL (> or = 4.0); Vitamin B12 282 pg/mL (200-900)
[2023-08-05 15:55] LABS: CDiff Gene PCR NEGATIVE (Negative)
[2023-08-06 16:14] LABS: Ceruloplasmin 31 mg/dL (18-53)
[2023-08-07 07:43] LABS: Transglutaminase Ab IgG <1.0 U/mL; Transglutaminase IgA <1.0 U/mL
[2023-08-07 13:58] LABS: Alpha Fetoprotein 3.5 ng/mL
[2023-08-08 13:04] LABS: Mitochondrial Antibodies NEGATIVE (NEGATIVE)
[2023-08-08 13:27] LABS: Smooth Muscle Antibody <20 U (<20)
[2023-08-09 13:18] LABS: Vitamin D 25-OH, D2 <4 ng/mL; Vitamin D 25-OH, D3 22 ng/mL; Vitamin D 25-OH, Total 22 ng/mL (30-100)
[2023-08-10 19:38] LABS: Calprotectin, Fecal 37 mcg/g
[2023-08-11 02:25] LABS: Angiotensin Converting Enzyme 35.5 U/L (9-67)
[2023-08-13 01:23] LABS: FIB-ALT 85 U/L (6-29); FIB-Alpha-2-Macroglobulin 177 mg/dL (106-279); FIB-Apolipoprotein A1 117 mg/dL (101-198); FIB-GGT 182 U/L (3-55); FIB-Haptoglobin 269 mg/dL (43-212); FIB-Total Bilirubin 0.4 mg/dL (0.2-1.2); Liver Fibrosis Score 0.21; Liver Fibrosis Stage F0; Nec Inflam Act Grade A1-A2; Nec Inflam Act Score 0.46
== END 2023-08-05 08:29 | disposition home or self-care (01) ==
LOC: HO.LAB 08:28
PROVIDERS: Absent Provider Nurse Practitioner Family; PCP Internal Medicine; Visit Provider Internal Medicine
DX: Z00.00 Encounter for general adult medical examination without abnormal findings (principal); D64.9 Anemia, unspecified; E55.9 Vitamin D deficiency, unspecified; R73.01 Impaired fasting glucose; E78.00 Pure hypercholesterolemia, unspecified; R30.0 Dysuria; D86.9 Sarcoidosis, unspecified; R74.8 Abnormal levels of other serum enzymes; R10.9 Unspecified abdominal pain; K58.9 Irritable bowel syndrome, unspecified; R19.7 Diarrhea, unspecified; R79.89 Other specified abnormal findings of blood chemistry; R15.9 Full incontinence of feces
CPT/HCPCS: 36415; 80053; 80061; 81003; 81596; 82105; 82164; 82306; 82390; 82607; 82728; 82746; 83036; 83735; 83993; 84443; 85025; 86015; 86140; 86364; 86381; 87493

== ENCOUNTER 2023-08-09 09:37 | Outpatient (AMB) | payer OTHER, SELFPAY ==
--- NOTE | 2023-08-09 09:59 | A.OFFVIS_ITS ---
Intake Vital Signs 08/09/23 10:03 Height 5 ft 4 in Weight 172 lb 6.424 oz BMI 29.6 BP 126/80 Blood Pressure Location Rt brachial Position Sitting Pulse 88 Pulse Source Pulse Oximeter Pulse Oximetry (%) 96 Oxygen Delivery Method Room Air Intake Visit Reasons: Fibromyalgia Intake Note: New patient presents today for FM consult, internally referred by Dr Vasquez. C/o pain everywhere. States symptoms started approx 10-15 years ago. She was given medication but does not recall name. Reports she drinks alcohol daily because it helps her sleep. Supervisor Money Room Required: No Accompanied by: Spouse Allergies No Known Allergies Allergy (Verified 08/09/23 10:02) Medication List - Last Reconciled 08/09/23 by Dorita Ruiz MD albuterol sulfate 90 mcg/actuation (Ventolin HFA) 2 puffs inhalation Q4-6H PRN cholecalciferol (vitamin D3) 50 mcg PO DAILY hydroxyzine HCl 25 mg PO BEDTIME PRN methylcellulose (laxative) (Citrucel) 500 mg PO DAILY omeprazole 20 mg PO DAILY sennosides (Natural Senna Laxative) 17.2 mg (2 x 8.6 mg) PO BEDTIME HPI HPI Comments History of Present Illness Details This is a 47-year-old female presents for evaluation of fibromyalgia. Patient states that it started about 10-15 years ago. She has pain all over. She was evaluated by a tray casting machine operator around 2009 and prescribed a medication that was not helping much. She has not been seen by tray casting machine operator since. She states that she hurts all over. There is no specific spot that hurts more than others. She has history of anxiety, depression. Does not have a therapist or a psychiatrist currently [facility] Medical History Overweight (BMI 25.0-29.9) Alcohol abuse Smoker Vitamin D deficiency Mixed hyperlipidemia Elevated LFTs Sarcoidosis Crohn's disease Depression Anxiety Osteoarthritis Osteopenia Hypothyroidism Fibromyalgia Foot fracture, right Surgical History History of esophagogastroduodenoscopy (EGD) Hx of cervical discectomy Hx of lumbar discectomy Hx of tonsillectomy Hx of colonoscopy H/O tubal ligation Family History Mother Stroke Other No family history of mental disorder Social History Housing: Apartment Alcohol intake: current Alcohol intake frequency: 0-2 drinks per day Patient Tobacco Use Status: Current everyday Tobacco user Cigarette Packs Per Day: 0.5 service: No Current occupational status: unemployed Cognitive needs: No Hearing needs: No Vision needs: No Female Reproductive History Menstrual Total pregnancies: 3 Ab spontaneous: 0 Review of Systems Const Reports fatigue and Reports weakness Eyes Reports diplopia, Reports dry eyes and Reports itchy eyes ENT Reports neck pain Card Reports irregular heart rhythm and Reports dyspnea Resp Reports dyspnea GI Reports heartburn and Reports diarrhea Musc Reports back pain, Reports myalgias, Reports arthralgias, Reports neck pain and Reports stiffness Skin/Breast Reports unusual bruising Neuro Reports memory loss and Reports weakness Psych Reports anxiety, Reports depression and Reports memory loss Endo Reports fatigue Aller/Immun Reports itchy eyes Physical Exam Vital Signs: Last Vital Signs Pulse 88 08/09/23 10:03 BP 126/80 08/09/23 10:03 Pulse Ox 96 08/09/23 10:03 Oxygen Delivery Method Room Air 08/09/23 10:03 BMI result Body Mass Index 29.6 Const General: cooperative, healthy appearing and comfortable Nutritional Appearance: overweight Orientation/consciousness: patient oriented x3 Limitations: no limitations HEENT Head: Yes normocephalic and Yes atraumatic Mouth: moist mucous membranes Resp Effort & Inspection: normal respiratory effort and able to speak in complete sentences Auscultation: clear to auscultation bilaterally Cardio Rate: regular rate Skin General skin exam: no rashes or lesions noted Neuro General: patient oriented x3 Extrem Other: Diffuse fibromyalgia tender points No active synovitis Normal nailfold capillaroscopy Assessment & Plan Assessment & Plan (1) Fibromyalgia: Comment: onset 2009 Code(s): M79.7 - Fibromyalgia Plan: This is a 47-year-old female who presents for evaluation of fibromyalgia. I do not see any signs suggestive of an autoimmune rheumatic disease upon my evaluation. Clinical picture consistent with fibromyalgia Discussed management of fibromyalgia with patient. Is a noninflammatory, non- autoimmune central afferent processing disorder leading to a diffuse pain syndrome. I suggested that patient try to address her underlying psychiatric issues, anxiety/depression. I suggested evaluation by a therapist and/or a psychiatrist. Try to follow sleep hygiene practices. Consider sleep study to rule out obstructive sleep apnea. Patient would benefit from increased physical activity, either through formal physical therapy or by joining a gym. Advised patient that she should start activity slowly and increase as tolerated. Consider low-impact exercises such as walking, swimming, aqua therapy stretching, yoga. Follow-up with PCP Plan I spent 20 minutes reviewing patient's chart, evaluating patient, counseling patient and documenting in the chart Coding Level of Care Code New Pt Level 3 (32787) Diagnoses Fibromyalgia M79.7
[2023-08-09 10:03] VITALS: BP 126/80; PULSE 88; O2SAT 96; BMI 29.6
== END 2023-08-09 10:41 | disposition home or self-care (01) ==
PROVIDERS: PCP Internal Medicine; Visit Provider Student in an Organized Health Care Education/Training Program
DX: M79.7 Fibromyalgia (principal)
CPT/HCPCS: 99203

== ENCOUNTER → 2023-08-09 09:37 | Outpatient (BNVA) | payer OTHER, SELFPAY | PROVIDERS: PCP Internal Medicine; Visit Provider Student in an Organized Health Care Education/Training Program | DX: M79.7 Fibromyalgia (principal) | CPT/HCPCS: 99202 ==

== ENCOUNTER 2023-10-01 13:24 | Outpatient (REF) | payer OTHER, SELFPAY | END 2023-10-01 13:25 | disposition home or self-care (01) | LOC: HO.LAB 13:24 | PROVIDERS: Nurse Practitioner Family; PCP Internal Medicine; Visit Provider Nurse Practitioner Family | DX: E55.9 Vitamin D deficiency, unspecified (principal) | CPT/HCPCS: 36415; 82306 ==